=== PATIENT | female | born 1950 | race Caucasian/White ===

== ENCOUNTER → 2016-12-06 | Outpatient (CLI) | payer MEDICARE, OTHER ==
[~2016-12-06] MED LIST: ACETAMINOPHEN PO; CERTAGEN PO; CRESTOR10 MG PO; DARVOCET-N 1001 TAB PO; LORTAB 2.5/5001 TAB PO; MILK OF MAGNESIA PO; MONTELUKAST SOD10 MG PO; MYCOLOG II CREA15 GM TOP; NAPROXEN PO; PRAVACHOL20 MG PO; PROTONIX PO; RECLAST 55 MG/100 M IV; SINGULAIR PO; SLEEPING PILL; VICODIN 5/500 T1 TAB PO; ZANTAC150 MG PO
--- NOTE | ~2016-12-06 | MY29 ---
[facility] A Service of [facility] & [facility] RADIOLOGY TEXT RESULTS PATIENT: JOSE YODER LOCATION: [facility] : 46 UNIT #: [id number] AGE: [address]: Cruzito Cody MD SEX: F ORDER DR: [id number] [facility] [address] [place], [place] [address] [id number] O MR#: [id number] Acc #: [id number] NAME: JOSE YODER : 1950 SEX: F STUDY DATE/TIME: 12/06/2016 10:32 UNIT: [facility] ROOM: STUDY DESCRIPTION: MY [facility] SCREENING W/ CAD BILAT Attending Physician: Cruzito Cody M.D. Referring Physician: Cruzito Cody M.D. Ordering Physician: Cruzito Cody M.D. Primary Care Physician: Cruzito Cody M.D. MEDICAL IMAGING REPORT This report is preliminary unless electronic signature is present EXAM Digital screening mammogram 12/06/2016. HISTORY 66-year-old woman. No risk elevation. Annual screen. Comparison mammograms 11/10/2014. Followup diagnostic left breast imaging 12/10/2014. FINDINGS Digital imaging of each breast was completed utilizing screening protocol. Review includes FDA-approved CAD device. Breast parenchyma is partially fatty replaced and heterogeneous. A small nodular parenchymal pattern is noted in both breasts upper central and upper outer quadrants. Dominant findings in the left breast are stable. I see no interval occurring suspicious mass. There are no microcalcifications and no architectural deformity. IMPRESSION Stable benign mammogram. Annual screening recommended. Patients over the age of 40 are entered into a reminder system with target due date for the next mammogram. A result letter will also be sent to the patient. BIRADS: 2 Benign Finding Dictated by... Major Jones M.D. THIS IS AN ELECTRONICALLY VERIFIED REPORT Major Jones M.D. at 12/06/2016 2:46 [address] [facility] A Service of [facility] & [facility] RADIOLOGY TEXT RESULTS PATIENT: JOSE YODER [id number] : 46 UNIT #: [id number] AGE: [address]: Cruzito Cody MD SEX: F ORDER DR: Marissa TD: 12/06/2016 11:01 JOB #: [id number] MEDICAL IMAGING REPORT Page 1 of 1 COPY
--- NOTE | ~2016-12-06 | BD1 ---
[facility] A Service of [facility] & [facility] RADIOLOGY TEXT RESULTS PATIENT: JOSE YODER LOCATION: [facility] : 46 UNIT #: [id number] AGE: [address]: Cruzito Cody MD SEX: F ORDER DR: [id number] [facility] [address] [place], [place] [address] [id number] O MR#: [id number] Acc #: [id number] NAME: JOSE YODER : 1950 SEX: F STUDY DATE/TIME: 12/06/2016 10:37 UNIT: [facility] ROOM: STUDY DESCRIPTION: BD Dexa Bone Dens 1+ Site Attending Physician: Cruzito Cody M.D. Referring Physician: Cruzito Cody M.D. Ordering Physician: Cruzito Cody M.D. Primary Care Physician: Cruzito Cody M.D. MEDICAL IMAGING REPORT This report is preliminary unless electronic signature is present EXAM DXA scan 12/06/2016 HISTORY Status post menopause with no hormone replacement therapy. Osteopenia. Family history of osteoporosis in mother. FINDINGS Bone mineral density in the lumbar spine from L1-L4 is 0.794 g/cm2 which is 2.3 standard deviations below the mean when compared to the young adult reference population which is characteristic of osteopenia. This is 0.3 standard deviations below the mean when compared to the age-matched population. Compared with 11/10/2014 there has been a decrease in bone mineral density in the lumbar spine of 9.4%. Bone mineral density in the left femoral neck was 0.577 g/cm2 which is 2.5 standard deviations below the mean when compared to the young adult reference population which is characteristic of osteoporosis. This is 0.7 standard deviations below the mean when compared to the age-matched population. Compared with 11/10/2014 there has been an increase in bone mineral density in the left hip of 9%. IMPRESSION Bone mineral density in the lumbar spine characteristic of osteopenia and within the left hip characteristic of osteoporosis. Compared with 11/10/2014 there has been a decrease in bone mineral density in the lumbar spine and the left hip. Dictated by... Mino Gary M.D. THIS IS AN ELECTRONICALLY VERIFIED REPORT Mino Gary M.D. at 12/07/2016 10:18 AM KRT/rnr [facility] A Service of [facility] & [facility] RADIOLOGY TEXT RESULTS PATIENT: JOSE YODER LOCATION: [facility] : 46 UNIT #: [id number] AGE: [address]: Cruzito Cody MD SEX: F ORDER DR: TD: 12/06/2016 17:27 JOB #: [id number] MEDICAL IMAGING REPORT Page 1 of 1 COPY
== END | disposition home or self-care (01) ==
LOC: CWCC 10:00
DX: Z12.31 Encounter for screening mammogram for malignant neoplasm of breast (principal); M81.0 Age-related osteoporosis without current pathological fracture
CPT/HCPCS: 77080; G0202